=== PATIENT | male | born 1960 | race Caucasian/White ===

== ENCOUNTER 2019-03-16 04:16 | Inpatient (IN) | payer OTHER ==
[~2019-03-16] VITALS: Ht 167.6 cm; Wt 75.4 kg
--- NOTE | 2019-03-16 04:35 | NUR ---
PT C/O ABDOMINAL PAIN IN ALL 4 QUADRANTS X1 DAY, REPORTS N/V DENIES DIARRHEA. PT NOT TENDER TO PALPATION. VSS. PT CONNECTED TO MONITORING, CALL LIGHT WITHIN REACH, ALL SAFETY MEASURES IN PLACE.
[2019-03-16] MEDS ORDERED: MAALOX/HYOSCYAMINE/LIDOCAINE 45 ML BTL PO ONE (05:00)
[2019-03-16] MEDS ORDERED: ONDANSETRON 2MG/ML, 2ML IVPush ONE (05:00)
[2019-03-16] MEDS ORDERED: SODIUM CHLORIDE FLUSH 10ML SYR IVF ONE (05:00)
[2019-03-16] MEDS ORDERED: FAMOTIDINE 20 MG/2 ML IV ONE (05:00)
[2019-03-16] MEDS ORDERED: FAMOTIDINE 20 MG/2 ML ONE (05:03)
[2019-03-16] MEDS ORDERED: ONDANSETRON 2MG/ML, 2ML ONE (05:03)
[2019-03-16] MEDS ORDERED: MAALOX/HYOSCYAMINE/LIDOCAINE 45 ML BTL ONE (05:03)
--- NOTE | 2019-03-16 05:18 | NUR ---
PT RESTING ON [facility] AT FOR SUPPORT. PT MEDICATED PER MAR AND UPDATED ON POC.
[2019-03-16 05:33] LABS: BASOPHILS # (AUTO) 0.17 x10^3/uL (0-0.1); BASOPHILS % (AUTO) 2 % (0-1); EOSINOPHILS # (AUTO) 0.69 x10^3/uL (0-0.4); EOSINOPHILS % (AUTO) 8 % (1-7); LYMPHOCYTES # (AUTO) 1.88 x10^3/uL (1-3.4); LYMPHOCYTES % (AUTO) 21 % (22-44); MD NO; MEAN CORPUSCULAR HEMOGLOBIN 36.2 pg (27.5-34.5); MEAN CORPUSCULAR HGB CONC 34.2 g/dL (33.2-36.2); MONOCYTES # (AUTO) 0.73 x10^3/uL (0.2-0.8); MONOCYTES % (AUTO) 8 % (2-9); NEUTROPHILS # (AUTO) 5.35 x10^3/uL (1.8-6.8); NEUTROPHILS % (AUTO) 61 % (42-75); PLATELET COUNT 127 x10^3/uL (130-400); RED BLOOD COUNT 3.57 x10^6/uL (4.38-5.82); RED CELL DISTRIBUTION WIDTH 13.5 % (9.4-14.8)
[2019-03-16 05:44] LABS: ALBUMIN 3.4 g/dL (3.4-5.0); ANION GAP 8 mmol/L (5-15); CALCIUM 9.3 mg/dL (8.5-10.1); CHLORIDE 95 mmol/L (98-107)
[2019-03-16 05:50] LABS: ALANINE AMINOTRANSFERASE 54 U/L (12-78); ALKALINE PHOSPHATASE 118 U/L (45-117); BILIRUBIN,TOTAL 1.4 mg/dL (0.2-1.0); CREATININE 1.29 mg/dL (0.7-1.3); TOTAL PROTEIN 7.4 g/dL (6.4-8.2)
[2019-03-16] MEDS ORDERED: MORPHINE SULFATE 4 MG/ML, 1ML ONE ×2 (05:51→06:33)
[2019-03-16] MEDS: MORPHINE SULFATE 4 MG/ML, 1ML IVPush PRN ×2 (05:53→06:40)
[2019-03-16] MEDS ORDERED: SODIUM CHLORIDE 0.9% 1,000ML IVBOLUS ONE (06:30)
--- NOTE | 2019-03-16 06:43 | NUR ---
PY RESTING ON [facility] AT . MEDICATED PER MAY. CALL LIGHT WITHIN REACH, ALL SAFETY MEASURES IN PLACE. PT PLACED ON 2L NC POST ADMIN OF PAIN MEDS TO [place] O2 SAT ABOVE 92%
--- NOTE | 2019-03-16 07:00 | NUR ---
REPORT RECEIVED FROM MARY HENRY.
--- NOTE | 2019-03-16 08:09 | NUR ---
DR. SANDHU EXPLAINED RISKS OF REFUSING ADMISSION FOR PANCREATITIS. PATIENT AND FAMILY WISH TO GO TO A HOSPITAL CLOSER TO HOME. WILL D/C ONCE PAPER WORK IS UP.
--- NOTE | 2019-03-16 08:18 | NUR ---
JUAN DIEGO PHONE NUMBER [phone]
--- NOTE | 2019-03-16 08:18 | NUR ---
WENT INTO ROOM TO D/C PIV. PATIENT EXPRESSED DESIRE TO STAY. NOTIFIED PROVIDER.
[2019-03-16] MEDS ORDERED: HYDROmorphone 1 MG/ML, 1ML INJ ONE (08:43)
--- NOTE | 2019-03-16 08:48 | NUR ---
PATIENT MEDICATED PER EMAR.
[2019-03-16] MEDS ORDERED: HYDROmorphone 1 MG/ML, 1ML INJ IV ONE (09:00)
[2019-03-16] MEDS ORDERED: ONDANSETRON ODT 4 MG PO PRN (09:30)
[2019-03-16] MEDS ORDERED: LABETALOL 5MG/ML, 20ML IVPush PRN (09:30)
[2019-03-16] MEDS ORDERED: PROP40TA PO (09:32)
[2019-03-16] MEDS ORDERED: LOSA50TA14 PO (09:33)
[2019-03-16] MEDS ORDERED: FINA5TAB4 PO (09:34)
[2019-03-16] MEDS ORDERED: MULT-717 PO (09:35)
--- NOTE | 2019-03-16 09:35 | NUR ---
URINE COLLECTED AND GIVEN TO GAS LEAK TESTER AT BEDSIDE. MED REC COMPLETED AND VERIFIED WITH AND PATIENT. ULTRASOUND IN PROGRESS. PT RESTING WITH NO COMPLAINTS.
[2019-03-16 09:39] LABS: MICROSCOPIC NOT IND
[2019-03-16 09:44] LABS: CULTURE INDICATED? NO
[2019-03-16 09:49] LABS: AMPHETAMINE SCREEN, URINE Negative (Negative); BARBITURATE SCREEN, URINE Negative (Negative); BENZODIAZEPINE SCREEN, URINE Negative (Negative); CANNABINOID SCREEN, URINE Negative (Negative); COCAINE SCREEN, URINE Negative (Negative); METHADONE SCREEN, URINE Negative (Negative); OPIATE SCREEN, URINE Positive (Negative)
--- NOTE | 2019-03-16 10:00 | NUR ---
REPORT GIVEN TO SOHEILA HENRY.
[2019-03-16] MEDS: ONDANSETRON 2MG/ML, 2ML IVPush PRN ×2 (11:50→17:50)
[2019-03-16] MEDS ORDERED: MAGNESIUM SULF. PMX 20GM/500ML 500 ML IV PRN (12:30)
[2019-03-16] MEDS ORDERED: MAGNESIUM SULFATE PMX 2GM/50ML 50 ML IV ONE (12:30)
[2019-03-16] MEDS: POTASSIUM CHLORIDE 10 MEQ in D5%-LACTATED RINGERS 1,000 ML IV SCH ×2 (13:54→23:41)
[2019-03-16 14:13] VITALS: BP 125/71
[2019-03-16] MEDS: morphine SULFATE 10 MG/ML, 1ML IVPush PRN ×4 (14:13→23:37)
[2019-03-16] MEDS ORDERED: LORazepam 1MG TABLET PO PRN ×3 (18:30)
[2019-03-16] MEDS ORDERED: LORazepam 0.5MG TABLET PO PRN (18:30)
[2019-03-16] MEDS ORDERED: LORazepam 2 MG/ML, 1ML IV PRN ×5 (18:30)
[2019-03-16 19:06] VITALS: BP 144/78
[2019-03-16] MEDS: POTASSIUM CHLORIDE 20 MEQ, MAGNESIUM SULFATE 1 GM, FOLIC ACID 1 MG, THIAMINE 200 MG, MV... IV SCH (19:22)
[2019-03-16] MEDS: FAMOTIDINE 20 MG/2 ML IVPush SCH (19:32)
[2019-03-16] MEDS ORDERED: OMNIPAQUE 350 MG/ML, 100ML BOTTLE ONE (23:51)
[2019-03-17 00:14] VITALS: BP 149/80
[2019-03-17] MEDS: morphine SULFATE 10 MG/ML, 1ML IVPush PRN ×6 (03:46→22:22)
[2019-03-17 05:56] LABS: MEAN CORPUSCULAR HEMOGLOBIN 36.3 pg (27.5-34.5); MEAN CORPUSCULAR HGB CONC 33.9 g/dL (33.2-36.2); PLATELET COUNT 93 x10^3/uL (130-400); RED CELL DISTRIBUTION WIDTH 13.8 % (9.4-14.8)
[2019-03-17 06:04] LABS: CHLORIDE 98 mmol/L (98-107)
[2019-03-17 06:11] VITALS: BP 146/78
[2019-03-17 06:14] LABS: ALANINE AMINOTRANSFERASE 51 U/L (12-78); ALBUMIN 3.1 g/dL (3.4-5.0); ALKALINE PHOSPHATASE 107 U/L (45-117); ANION GAP 8 mmol/L (5-15); BILIRUBIN,TOTAL 1.9 mg/dL (0.2-1.0); CALCIUM 8.5 mg/dL (8.5-10.1); CREATININE 1.15 mg/dL (0.7-1.3); TOTAL PROTEIN 6.8 g/dL (6.4-8.2)
[2019-03-17 06:41] LABS: BASOPHILS # (AUTO) 0.09 x10^3/uL (0-0.1); BASOPHILS % (AUTO) 1 % (0-1); EOSINOPHILS # (AUTO) 0.12 x10^3/uL (0-0.4); EOSINOPHILS % (AUTO) 1 % (1-7); LYMPHOCYTES # (AUTO) 0.83 x10^3/uL (1-3.4); LYMPHOCYTES % (AUTO) 7 % (22-44); MD SCAN; MONOCYTES # (AUTO) 1.56 x10^3/uL (0.2-0.8); MONOCYTES % (AUTO) 14 % (2-9); NEUTROPHILS # (AUTO) 8.53 x10^3/uL (1.8-6.8); NEUTROPHILS % (AUTO) 77 % (42-75)
[2019-03-17] MEDS: PANTOPRAZOLE 40 MG IV IVPush SCH (07:54)
[2019-03-17] MEDS: FAMOTIDINE 20 MG/2 ML IVPush SCH ×2 (07:54→19:29)
[2019-03-17] MEDS: POTASSIUM CHLORIDE 10 MEQ in D5%-LACTATED RINGERS 1,000 ML IV SCH (10:13)
[2019-03-17 13:31] VITALS: BP 125/65
[2019-03-17] MEDS: PROPRANOLOL 10 MG TABLET PO SCH (17:33)
[2019-03-17] MEDS: POTASSIUM CHLORIDE 20 MEQ, MAGNESIUM SULFATE 1 GM, FOLIC ACID 1 MG, THIAMINE 200 MG, MV... IV SCH (17:52)
[2019-03-17 18:56] VITALS: BP 123/71
[2019-03-18 02:21] VITALS: BP 151/84
[2019-03-18] MEDS: morphine SULFATE 10 MG/ML, 1ML IVPush PRN ×6 (02:33→23:07)
[2019-03-18] MEDS: PROPRANOLOL 10 MG TABLET PO SCH ×2 (05:39→17:38)
[2019-03-18 05:59] LABS: MEAN CORPUSCULAR HEMOGLOBIN 35.9 pg (27.5-34.5); MEAN CORPUSCULAR HGB CONC 33.6 g/dL (33.2-36.2); MEAN CORPUSCULAR VOLUME 107.1 fL (81-97); MEAN PLATELET VOLUME 8.6 fL (7.4-10.4); PLATELET COUNT 75 x10^3/uL (130-400)
[2019-03-18 06:05] LABS: CALCIUM 8.4 mg/dL (8.5-10.1); CHLORIDE 100 mmol/L (98-107)
[2019-03-18 06:35] LABS: ALANINE AMINOTRANSFERASE 48 U/L (12-78); ALKALINE PHOSPHATASE 110 U/L (45-117); ANION GAP 5 mmol/L (5-15); BILIRUBIN,TOTAL 1.8 mg/dL (0.2-1.0); CREATININE 1.14 mg/dL (0.7-1.3); TOTAL PROTEIN 6.8 g/dL (6.4-8.2)
[2019-03-18 06:55] LABS: BASOPHILS # (AUTO) 0.08 x10^3/uL (0-0.1); BASOPHILS % (AUTO) 1 % (0-1); EOSINOPHILS # (AUTO) 0.23 x10^3/uL (0-0.4); EOSINOPHILS % (AUTO) 2 % (1-7); LYMPHOCYTES # (AUTO) 1.19 x10^3/uL (1-3.4); LYMPHOCYTES % (AUTO) 10 % (22-44); MD SCAN; MONOCYTES # (AUTO) 1.18 x10^3/uL (0.2-0.8); MONOCYTES % (AUTO) 10 % (2-9); NEUTROPHILS # (AUTO) 8.84 x10^3/uL (1.8-6.8); NEUTROPHILS % (AUTO) 77 % (42-75)
[2019-03-18 07:35] VITALS: BP 136/77
[2019-03-18] MEDS: FAMOTIDINE 20 MG/2 ML IVPush SCH ×2 (09:23→20:04)
[2019-03-18] MEDS: PANTOPRAZOLE 40 MG IV IVPush SCH (09:23)
[2019-03-18] MEDS: POTASSIUM CHLORIDE 10 MEQ in D5%-LACTATED RINGERS 1,000 ML IV SCH ×3 (09:56→22:51)
[2019-03-18 13:24] VITALS: BP 122/69
[2019-03-18] MEDS: LORATADINE 10 MG TABLET PO SCH (14:36)
[2019-03-18] MEDS: POTASSIUM CHLORIDE 20 MEQ, MAGNESIUM SULFATE 1 GM, FOLIC ACID 1 MG, THIAMINE 200 MG, MV... IV SCH (20:04)
[2019-03-18 20:29] VITALS: BP 133/71
[2019-03-19] MEDS ORDERED: FUROSEMIDE 40 MG/4 ML ONE (02:23)
[2019-03-19 02:26] LABS: MEAN CORPUSCULAR HEMOGLOBIN 36.7 pg (27.5-34.5); MEAN CORPUSCULAR HGB CONC 34.1 g/dL (33.2-36.2); MEAN CORPUSCULAR VOLUME 107.5 fL (81-97); RED BLOOD COUNT 3.27 x10^6/uL (4.38-5.82)
[2019-03-19 02:28] LABS: ALANINE AMINOTRANSFERASE 41 U/L (12-78); ALBUMIN 3.1 g/dL (3.4-5.0); ANION GAP 9 mmol/L (5-15); CALCIUM 8.6 mg/dL (8.5-10.1); CHLORIDE 99 mmol/L (98-107); CREATININE 1.22 mg/dL (0.7-1.3)
[2019-03-19 02:30] LABS: ALKALINE PHOSPHATASE 111 U/L (45-117); BILIRUBIN,TOTAL 3.2 mg/dL (0.2-1.0); TOTAL PROTEIN 7.5 g/dL (6.4-8.2)
[2019-03-19] MEDS ORDERED: FUROSEMIDE 40 MG/4 ML IV ONE (02:30)
[2019-03-19 02:39] LABS: BASOPHILS # (AUTO) 0.12 x10^3/uL (0-0.1); BASOPHILS % (AUTO) 1 % (0-1); EOSINOPHILS # (AUTO) 0.28 x10^3/uL (0-0.4); EOSINOPHILS % (AUTO) 2 % (1-7); LYMPHOCYTES # (AUTO) 1.73 x10^3/uL (1-3.4); LYMPHOCYTES % (AUTO) 10 % (22-44); MD SCAN; MONOCYTES % (AUTO) 12 % (2-9); NEUTROPHILS # (AUTO) 13.18 x10^3/uL (1.8-6.8); NEUTROPHILS % (AUTO) 76 % (42-75); PLATELET COUNT 86 x10^3/uL (130-400)
[2019-03-19] MEDS: AMPICILLIN/SULBACTAM 3 GM in SODIUM CHLORIDE 0.9% 100 ML IV SCH ×4 (03:09→20:35)
[2019-03-19 03:40] LABS: MICROSCOPIC NOT IND
[2019-03-19 03:44] LABS: CULTURE INDICATED? NO
[2019-03-19] MEDS ORDERED: FUROSEMIDE 20 MG/2 ML IV ONE (06:00)
[2019-03-19] MEDS: PROPRANOLOL 10 MG TABLET PO SCH ×3 (06:04→20:36)
[2019-03-19] MEDS: ALBUTEROL SULFATE 2.5 MG/3 ML NPPB SCH ×6 (06:20→22:54)
[2019-03-19] MEDS: PANTOPRAZOLE 40 MG IV IVPush SCH (08:12)
[2019-03-19] MEDS: LORATADINE 10 MG TABLET PO SCH (09:00)
[2019-03-19] MEDS: FUROSEMIDE 20 MG/2 ML IV SCH ×2 (09:52→20:36)
[2019-03-19] MEDS: morphine SULFATE 10 MG/ML, 1ML IVPush PRN ×2 (10:07→14:57)
[2019-03-19 10:33] LABS: INTERNATIONAL NORMALIZED RATIO 1.37 (0.93-1.1); PROTHROMBIN TIME 14.2 Seconds (9.6-11.5)
[2019-03-19] MEDS ORDERED: DIAZEPAM 10 MG TABLET PO SCH (12:15)
[2019-03-19] MEDS ORDERED: DIAZEPAM 5 MG TABLET ONE ×2 (12:22→18:09)
[2019-03-19] MEDS: DIAZEPAM 10 MG TABLET PO SCH ×2 (13:00→20:00)
[2019-03-19] MEDS: LORazepam 1MG TABLET PO PRN (14:56)
[2019-03-19] MEDS: HEPARIN 5,000 UNITS/ML, 1ML SQ SCH (20:35)
[2019-03-20] MEDS: DIAZEPAM 10 MG TABLET PO SCH ×4 (01:00→23:00)
[2019-03-20] MEDS: ALBUTEROL SULFATE 2.5 MG/3 ML NPPB SCH (01:23)
[2019-03-20] MEDS: AMPICILLIN/SULBACTAM 3 GM in SODIUM CHLORIDE 0.9% 100 ML IV SCH ×4 (03:13→20:37)
[2019-03-20 04:28] LABS: MEAN CORPUSCULAR HEMOGLOBIN 36.3 pg (27.5-34.5); MEAN CORPUSCULAR HGB CONC 33.5 g/dL (33.2-36.2); MEAN CORPUSCULAR VOLUME 108.2 fL (81-97); MEAN PLATELET VOLUME 8.5 fL (7.4-10.4); PLATELET COUNT 78 x10^3/uL (130-400); RED BLOOD COUNT 3.28 x10^6/uL (4.38-5.82); RED CELL DISTRIBUTION WIDTH 13.7 % (9.4-14.8)
[2019-03-20 04:40] LABS: ALANINE AMINOTRANSFERASE 34 U/L (12-78); ALBUMIN 2.7 g/dL (3.4-5.0); ANION GAP 7 mmol/L (5-15); CALCIUM 8.1 mg/dL (8.5-10.1); CHLORIDE 93 mmol/L (98-107); CREATININE 1.19 mg/dL (0.7-1.3)
[2019-03-20 04:42] LABS: ALKALINE PHOSPHATASE 99 U/L (45-117); BILIRUBIN,TOTAL 3.5 mg/dL (0.2-1.0); TOTAL PROTEIN 6.8 g/dL (6.4-8.2)
[2019-03-20 04:56] LABS: BASOPHILS # (AUTO) 0.03 x10^3/uL (0-0.1); BASOPHILS % (AUTO) 0 % (0-1); EOSINOPHILS # (AUTO) 0.25 x10^3/uL (0-0.4); EOSINOPHILS % (AUTO) 2 % (1-7); LYMPHOCYTES # (AUTO) 1.61 x10^3/uL (1-3.4); LYMPHOCYTES % (AUTO) 12 % (22-44); MD SCAN; MONOCYTES # (AUTO) 1.85 x10^3/uL (0.2-0.8); MONOCYTES % (AUTO) 14 % (2-9); NEUTROPHILS # (AUTO) 9.41 x10^3/uL (1.8-6.8); NEUTROPHILS % (AUTO) 72 % (42-75)
[2019-03-20] MEDS ORDERED: DIAZEPAM 5 MG TABLET ONE (07:46)
[2019-03-20] MEDS: PANTOPRAZOLE 40 MG IV IVPush SCH ×2 (07:51→08:07)
[2019-03-20] MEDS: PROPRANOLOL 10 MG TABLET PO SCH ×3 (07:52→20:37)
[2019-03-20] MEDS: FUROSEMIDE 20 MG/2 ML IV SCH ×2 (08:07→20:37)
[2019-03-20] MEDS: LORATADINE 10 MG TABLET PO SCH (08:08)
[2019-03-20] MEDS: HEPARIN 5,000 UNITS/ML, 1ML SQ SCH ×2 (10:08→20:38)
[2019-03-20] MEDS: LORazepam 1MG TABLET PO PRN (12:57)
[2019-03-20 20:11] VITALS: BP 126/74
[2019-03-20] MEDS: morphine SULFATE 10 MG/ML, 1ML IVPush PRN (21:32)
[2019-03-21] MEDS: AMPICILLIN/SULBACTAM 3 GM in SODIUM CHLORIDE 0.9% 100 ML IV SCH ×4 (02:18→20:45)
[2019-03-21 05:07] VITALS: BP 118/75
[2019-03-21 05:52] LABS: MEAN CORPUSCULAR HEMOGLOBIN 36.1 pg (27.5-34.5); MEAN CORPUSCULAR HGB CONC 33.9 g/dL (33.2-36.2); MEAN CORPUSCULAR VOLUME 106.7 fL (81-97); MEAN PLATELET VOLUME 8.5 fL (7.4-10.4); PLATELET COUNT 102 x10^3/uL (130-400); RED CELL DISTRIBUTION WIDTH 13.5 % (9.4-14.8)
[2019-03-21 05:55] LABS: ALBUMIN 2.5 g/dL (3.4-5.0); ANION GAP 8 mmol/L (5-15); CALCIUM 7.9 mg/dL (8.5-10.1); CHLORIDE 95 mmol/L (98-107)
[2019-03-21 05:59] LABS: ALANINE AMINOTRANSFERASE 35 U/L (12-78); ALKALINE PHOSPHATASE 114 U/L (45-117); CREATININE 1.18 mg/dL (0.7-1.3); TOTAL PROTEIN 6.6 g/dL (6.4-8.2)
[2019-03-21 06:12] LABS: BASOPHILS # (AUTO) 0.01 x10^3/uL (0-0.1); BASOPHILS % (AUTO) 0 % (0-1); EOSINOPHILS # (AUTO) 0.44 x10^3/uL (0-0.4); EOSINOPHILS % (AUTO) 4 % (1-7); LYMPHOCYTES # (AUTO) 2.11 x10^3/uL (1-3.4); LYMPHOCYTES % (AUTO) 20 % (22-44); MD SCAN; MONOCYTES # (AUTO) 1.48 x10^3/uL (0.2-0.8); MONOCYTES % (AUTO) 14 % (2-9); NEUTROPHILS # (AUTO) 6.66 x10^3/uL (1.8-6.8); NEUTROPHILS % (AUTO) 62 % (42-75)
[2019-03-21] MEDS ORDERED: DIAZEPAM 5 MG TABLET PO PRN (06:30)
[2019-03-21] MEDS ORDERED: POTASSIUM CHLORIDE 20 MEQ TAB.ER.PRT PO ONE ×4 (06:30→22:00)
[2019-03-21 07:33] VITALS: BP 118/73
[2019-03-21] MEDS: LORATADINE 10 MG TABLET PO SCH (08:15)
[2019-03-21] MEDS: FUROSEMIDE 20 MG/2 ML IV SCH ×2 (08:16→22:21)
[2019-03-21] MEDS: PROPRANOLOL 10 MG TABLET PO SCH ×3 (08:16→20:56)
[2019-03-21] MEDS: HEPARIN 5,000 UNITS/ML, 1ML SQ SCH ×2 (08:16→20:55)
[2019-03-21 12:58] VITALS: BP 102/61
[2019-03-21] MEDS: morphine SULFATE 10 MG/ML, 1ML IVPush PRN ×2 (16:24→21:39)
[2019-03-21 18:53] VITALS: BP 119/79
[2019-03-22] MEDS: AMPICILLIN/SULBACTAM 3 GM in SODIUM CHLORIDE 0.9% 100 ML IV SCH ×4 (02:36→22:07)
[2019-03-22] MEDS: morphine SULFATE 10 MG/ML, 1ML IVPush PRN (04:26)
[2019-03-22 05:26] LABS: MEAN CORPUSCULAR HEMOGLOBIN 35.7 pg (27.5-34.5); MEAN CORPUSCULAR HGB CONC 33.3 g/dL (33.2-36.2); MEAN CORPUSCULAR VOLUME 107.2 fL (81-97); MEAN PLATELET VOLUME 8.4 fL (7.4-10.4); PLATELET COUNT 126 x10^3/uL (130-400); RED CELL DISTRIBUTION WIDTH 13.9 % (9.4-14.8)
[2019-03-22 05:35] LABS: ANION GAP 8 mmol/L (5-15); CHLORIDE 100 mmol/L (98-107)
[2019-03-22 05:36] LABS: CREATININE 1.11 mg/dL (0.7-1.3)
[2019-03-22 06:18] LABS: BASOPHILS # (AUTO) 0.04 x10^3/uL (0-0.1); BASOPHILS % (AUTO) 0 % (0-1); EOSINOPHILS # (AUTO) 0.84 x10^3/uL (0-0.4); EOSINOPHILS % (AUTO) 8 % (1-7); LYMPHOCYTES # (AUTO) 1.81 x10^3/uL (1-3.4); LYMPHOCYTES % (AUTO) 18 % (22-44); MD SCAN; MONOCYTES % (AUTO) 16 % (2-9); NEUTROPHILS # (AUTO) 5.76 x10^3/uL (1.8-6.8); NEUTROPHILS % (AUTO) 57 % (42-75)
[2019-03-22] MEDS: PANTOPROZOLE 40MG TABLET PO SCH (06:21)
[2019-03-22 10:13] VITALS: BP 113/73
[2019-03-22] MEDS: FUROSEMIDE 20 MG/2 ML IV SCH ×2 (10:15→22:06)
[2019-03-22] MEDS: PROPRANOLOL 10 MG TABLET PO SCH ×3 (10:15→22:07)
[2019-03-22] MEDS: HEPARIN 5,000 UNITS/ML, 1ML SQ SCH ×2 (10:15→22:07)
[2019-03-22] MEDS: LORATADINE 10 MG TABLET PO SCH (10:16)
[2019-03-22 16:38] VITALS: BP 128/80
[2019-03-22 19:51] VITALS: BP 116/72
[2019-03-23] MEDS: AMPICILLIN/SULBACTAM 3 GM in SODIUM CHLORIDE 0.9% 100 ML IV SCH ×2 (04:08→08:59)
[2019-03-23] MEDS: PANTOPROZOLE 40MG TABLET PO SCH (05:44)
[2019-03-23] MEDS ORDERED: PROP10TA16 PO (07:44)
[2019-03-23] MEDS ORDERED: FOLI-17 PO (07:44)
[2019-03-23] MEDS ORDERED: THIA100T67 PO (07:44)
[2019-03-23 07:45] VITALS: BP 111/72
[2019-03-23] MEDS: FUROSEMIDE 20 MG/2 ML IV SCH (08:56)
[2019-03-23] MEDS: LORATADINE 10 MG TABLET PO SCH (08:56)
[2019-03-23] MEDS: PROPRANOLOL 10 MG TABLET PO SCH (08:56)
== END 2019-03-23 12:13 | disposition home or self-care (01) | DRG 438 ==
LOC: ED 05:48 → EDIP 08:27 → 3N 10:32 → CCU 03-19 02:01 → 3N 03-20 16:18 → DCLOUNGE 03-23 12:00
PROVIDERS: ADMIT Internal Medicine; ATTEND Hospitalist
DX: K85.20 Alcohol induced acute pancreatitis without necrosis or infection (principal); J18.9 Pneumonia, unspecified organism; J96.01 Acute respiratory failure with hypoxia; E87.1 Hypo-osmolality and hyponatremia; K76.6 Portal hypertension; F10.239 Alcohol dependence with withdrawal, unspecified; K70.30 Alcoholic cirrhosis of liver without ascites; K70.10 Alcoholic hepatitis without ascites; D53.9 Nutritional anemia, unspecified; D69.59 Other secondary thrombocytopenia; D75.89 Other specified diseases of blood and blood-forming organs; E11.9 Type 2 diabetes mellitus without complications; E78.5 Hyperlipidemia, unspecified; E86.1 Hypovolemia; E87.70 Fluid overload, unspecified; F17.210 Nicotine dependence, cigarettes, uncomplicated; I11.9 Hypertensive heart disease without heart failure; K90.0 Celiac disease; Z80.1 Family history of malignant neoplasm of trachea, bronchus and lung
CPT/HCPCS: 36415; 36600; 74022; 96374; 99285; J3490; J7121; J7613; 71045; 74177; 76700; 80048; 80053; 80074; 80307; 81003; 82607; 82803; 83605; 83690; 83735; 84100; 84443; 85025; 85610; 87040; 87070; 87081; 87205; 93306; 94640; 94660; G0378; J0295; J1170; J1644; J1940; J2405; J3411; J3475; J3480; Q9967; C9113; J2270; J7030